=== PATIENT | female | born 1950 | race Caucasian/White ===

== ENCOUNTER → 2016-05-29 | Day surgery (SDC) | payer MEDICARE, OTHER ==
[~2016-05-29] MED LIST: ADVAIR 115-21 INH; ALBUTEROL 0.5ML INH; ALBUTEROL20 ml INH; ALPRAZOLAM PO; AMLODIPINE BESYL5 MG PO; ANTIVERT PO; APRESOLINE PO; ASPIR-TRIN325 MG PO; ASPIRIN PO; ASPIRIN81 M2 PO; AZITHROMYCIN250 MG PO; AZOR 5-20 MG T1 EACH PO; BREO ELLIPTA I1 EACH IH; BYSTOLIC5 MG PO; DIAZEPAM PO; DICLOFENAC; DIOVAN PO; IBUPROFEN800 MG PO; LISINOPRIL PO; MEDROL4 MG/DOSE- PO; MICROZIDE12.5 M1 PO; MUCINEX1200 MG/BO PO; OXYCODON HCL-1 UDTAB PO; OXYCODON-ACETA1 EAC1; OXYCODONE HCL10 MG PO; OXYCODONE HCL5 MG PO; OXYCONTIN PO; PRILOSEC PO; PRILOSEC20 MG PO; ROXICET 5/325 SO5 ML PO; SOMA PO; SPIRIVA18 MCG INH; SYMBICORT INH; TRICOR PO; VIT C; XANAX0.5 MG; ZANTAC PO; ZANTAC150 MG PO; ZESTRIL10 M1 PO; ZOCOR PO; ZOCOR20 MG PO
--- NOTE | ~2016-05-29 | OR ---
Unit #: [id number] #: [id number] Patient: JAIME HAMPTON [id number] [address] [place], [place] [address] [id number] O MR#: [id number] NAME: JAIME HAMPTON ROOM: Date of Procedure: 05/29/2016 Admission Date: 05/29/2016 Surgeon: Demond Garcia M.D. : 1950 Attending Physician: Demond Garcia M.D. Primary Care Physician: Ronny Warren M.D. OPERATIVE REPORT PREOPERATIVE DIAGNOSES 1. Thoracic degenerative disk disease. 2. Thoracic radiculopathy. 3. Back pain. POSTOPERATIVE DIAGNOSES 1. Thoracic degenerative disk disease. 2. Thoracic radiculopathy. 3. Back pain. PROCEDURE PERFORMED Thoracic epidural steroid injection with intravenous sedation and fluoroscopic guidance for needle localization. INDICATIONS FOR PROCEDURE The patient is a 66-year-old female, who has return of pain in this distribution to this known pathology. She was treated medically and p.r.n. epidural steroid injections. Last injection nearly was done 10 months ago. She did well until just recently. Based on history, pathology, symptomatology, response to treatment, we are going to proceed with a repeat thoracic epidural steroid injection today. DESCRIPTION OF PROCEDURE The patient was placed in a seated position. Standard monitors were applied. 4 mg of Versed were given for sedation and anxiolysis, which were adequate. Vital signs remained stable. Sterile prep and drape then of the lumbar area was performed. The skin then to the right of midline at the L5 level was localized with 1% lidocaine in right paramedian approach. An 18-gauge needle was then done via loss of resistance technique with fluoroscopic guidance. After confirming proper positioning with fluoroscopy and radiographic contrast, 80 mg of Depo-Medrol and 4 mL of 0.125% bupivacaine were deposited. The patient tolerated the procedure otherwise well and was discharged to the recovery room in stable condition. Dictated by... Demond Garcia M.D. P/modl TD: 05/29/2016 23:37 Unit #: [id number] #: [id number] Patient: JAIME HAMPTON JOB #: [id number] OPERATIVE REPORT Page 1 of 1 X Demond Garcia MD X PROCEDURE OPERATIVE NOTE
== END | disposition home or self-care (01) ==
LOC: CCSC 08:57
DX: M51.14 Intervertebral disc disorders with radiculopathy, thoracic region (principal); J45.909 Unspecified asthma, uncomplicated; F41.9 Anxiety disorder, unspecified
CPT/HCPCS: J1040; J2250

== ENCOUNTER → 2016-08-05 | Day surgery (SDC) | payer OTHER, MEDICARE ==
--- NOTE | ~2016-08-05 | OR ---
Unit #: [id number] #: [id number] Patient: JAIME HAMPTON [id number] [address] [place], [place] [address] [id number] O MR#: [id number] NAME: JAIME HAMPTON ROOM: Date of Procedure: 08/05/2016 Admission Date: 08/05/2016 Surgeon: Demond Garcia M.D. : 1950 Attending Physician: Demond Garcia M.D. Primary Care Physician: Ronny Warren M.D. OPERATIVE REPORT PREOPERATIVE DIAGNOSES Neck pain, radiculopathy, degenerative cervical disk disease. POSTOPERATIVE DIAGNOSIS Neck pain, radiculopathy, degenerative cervical disk disease. PROCEDURE PERFORMED Cervical epidural steroid injection with intravenous sedation and fluoroscopic guidance for needle localization. INDICATIONS FOR PROCEDURE This is a 66-year-old female with significant flare up of back pain, but also with neck and bilateral upper extremity pain which is a big issue. She has nonsurgical pathology there. Last epidural steroid injection was done in 02/2016. Plan is to repeat injection based on history, pathology, and symptomatology. DESCRIPTION OF PROCEDURE The patient was placed in a seated position. Standard monitors were applied. 4 mg of Versed were given for sedation and anxiolysis, which were adequate. Vital signs remained stable. Sterile prep and drape then of the cervical area was performed. The skin then at the C6 level was localized with 1% lidocaine. An 18-gauge Hustead needle was then advanced via hanging drop technique and fluoroscopic guidance in toward the epidural space. After confirming proper positioning with fluoroscopy and radiographic contrast, 80 mg of Depo-Medrol and 2 mL of 0.25% bupivacaine were deposited. The patient tolerated the procedure otherwise well and was discharged to the recovery room in stable condition. Dictated by... Etta Greene/grey TD: 08/15/2016 11:02 JOB #: [id number] Unit #: [id number] #: [id number] Patient: JAIME HAMPTON OPERATIVE REPORT Page 1 of 1 X Demond Garcia MD X PROCEDURE OPERATIVE NOTE
== END | disposition home or self-care (01) ==
LOC: CCSC 09:55
DX: M50.10 Cervical disc disorder with radiculopathy, unspecified cervical region (principal); M54.9 Dorsalgia, unspecified; J45.909 Unspecified asthma, uncomplicated
CPT/HCPCS: J1040; J2250

== ENCOUNTER → 2016-08-12 | Day surgery (SDC) | payer OTHER, MEDICARE ==
--- NOTE | ~2016-08-12 | OR ---
Unit #: [id number] #: [id number] Patient: JAIME HAMPTON [id number] [address] [place], [place] [address] [id number] O MR#: [id number] NAME: JAIME HAMPTON ROOM: Date of Procedure: 08/12/2016 Admission Date: 08/12/2016 Surgeon: Demond Garcia M.D. : 1950 Attending Physician: Demond Garcia M.D. Primary Care Physician: Ronny Warren M.D. OPERATIVE REPORT PREOPERATIVE DIAGNOSES Back pain, radiculopathy, post-lumbar fusion, degenerative lumbar disk disease. POSTOPERATIVE DIAGNOSES Back pain, radiculopathy, post-lumbar fusion, degenerative lumbar disk disease. PROCEDURES PERFORMED Lumbar epidural steroid injection with intravenous sedation and fluoroscopic guidance for needle localization. INDICATIONS FOR PROCEDURE This is a 66-year-old female with return of back and bilateral lower extremity pains. The patient has cervical, thoracic and lumbar spine disease, all of which is significant. She has had a prior lumbar fusion. She continued to have symptomatology, was treated medically with p.r.n. epidural steroid injections every 4 to 6 months. Last lumbar epidural steroid injection was completed 4 months ago and she did very well until last 2 weeks ago. She did have a cervical epidural steroid injection done last week after having done well for about 5 months with a single injection. Based on history, pathology, symptomatology, and treatment options, we are going to proceed with a repeat single lumbar epidural steroid injection today. DESCRIPTION OF PROCEDURE The patient was placed in a seated position. Standard monitors were applied. 4 mg of Versed were given for sedation and anxiolysis, which were adequate. Vital signs remained stable. Sterile prep and drape then of the lumbar area was performed. The skin at the L3-L4 level was localized with 1% lidocaine. An 18-gauge [employer] needle was then advanced via loss of resistance technique and fluoroscopic guidance in toward the epidural space. After confirming proper positioning with fluoroscopy and radiographic contrast, 80 mg of Depo-Medrol and 4 mL of 0.125% bupivacaine were deposited. The patient tolerated the procedure otherwise well and was discharged to the recovery room in stable condition. Dictated by... Demond Garcia M.D. LHP/modl Unit #: [id number] #: [id number] Patient: JAIME HAMPTON TD: 08/13/2016 02:17 JOB #: [id number] CC: Kelly/valente Please Delete OPERATIVE REPORT Page 1 of 1 X Demond Garcia MD X PROCEDURE OPERATIVE NOTE
== END | disposition home or self-care (01) ==
LOC: CCSC 06:42
DX: M51.16 Intervertebral disc disorders with radiculopathy, lumbar region (principal); Z98.1 Arthrodesis status; J45.909 Unspecified asthma, uncomplicated
CPT/HCPCS: J2250

== ENCOUNTER → 2016-09-11 | Day surgery (SDC) | payer OTHER, MEDICARE ==
--- NOTE | ~2016-09-11 | OR ---
Unit #: [id number] #: [id number] Patient: JAIME HAMPTON [id number] [address] [address] [id number] O MR#: [id number] NAME: JAIME HAMPTON ROOM: Date of Procedure: 09/11/2016 Admission Date: 09/11/2016 Surgeon: Demond Garcia M.D. : 1950 Attending Physician: Demond Garcia M.D. Primary Care Physician: Ronny Warren M.D. OPERATIVE REPORT PREOPERATIVE DIAGNOSES Thoracic disk disease, thoracic radiculopathy, back pain. POSTOPERATIVE DIAGNOSES Thoracic disk disease, thoracic radiculopathy, back pain. PROCEDURE PERFORMED Thoracic epidural steroid injection with intravenous sedation and fluoroscopic guidance for needle localization. INDICATIONS FOR PROCEDURE The patient is a 66-year-old female with lumbar, thoracic, and cervical disk and spine disease. She was treated medically and p.r.n. epidural steroid injections. Generally, single injection given 3 to 6 months of improvement. Plan is to repeat a single thoracic injection at this point. DESCRIPTION OF PROCEDURE The patient was placed in a seated position. Standard monitors were applied. 4 mg of Versed were given for sedation and anxiolysis, which were adequate. Vital signs remained stable. Sterile prep and drape then of the thoracic area was performed. The skin at the right of midline at the T5 level was localized with 1% lidocaine. An 18-gauge Hustead needle was then advanced via loss of resistance technique and a paramedian approach into the epidural space. After confirming proper positioning with fluoroscopy and radiographic contrast, 80 mg of Depo-Medrol and 4 mL of 0.125% bupivacaine were deposited. The patient tolerated the procedure otherwise well and was discharged to the recovery room in stable condition. Dictated by... Etta Greene/grey TD: 09/11/2016 14:06 JOB #: [id number] Unit #: [id number] #: [id number] Patient: JAIME HAMPTON OPERATIVE REPORT Page 1 of 1 X Demond Garcia MD X PROCEDURE OPERATIVE NOTE
== END | disposition home or self-care (01) ==
LOC: CCSC 10:32
DX: M51.14 Intervertebral disc disorders with radiculopathy, thoracic region (principal); J45.909 Unspecified asthma, uncomplicated
CPT/HCPCS: J1040; J2250